=== PATIENT | female | born 1990 | race Caucasian/White ===

== ENCOUNTER 2017-08-26 10:38 | Outpatient (CLI) | payer OTHER | END 2017-08-26 10:46 | disposition home or self-care (01) | LOC: RX STUDY 10:38 | DX: K27.9 Peptic ulcer, site unspecified, unspecified as acute or chronic, without hemorrhage or perforation (principal); K20.9 Esophagitis, unspecified ==

== ENCOUNTER 2017-10-05 10:20 | Outpatient (CLI) | payer OTHER | END 2017-10-05 10:30 | disposition home or self-care (01) | LOC: SONOGRAMA 10:20 | DX: R10.13 Epigastric pain (principal) ==

== ENCOUNTER 2017-11-07 05:12 | Day surgery (SDC) | payer OTHER ==
[~2017-11-07 05:12] MED LIST: SYNTH PO; ZOLOFT50 MG PO
== END 2017-11-07 14:55 | disposition home or self-care (01) ==
LOC: CIR.AMB 05:12
DX: K80.10 Calculus of gallbladder with chronic cholecystitis without obstruction (principal)

== ENCOUNTER 2018-04-28 15:05 | Outpatient (CLI) | payer OTHER | END 2018-04-28 15:17 | disposition home or self-care (01) | LOC: RAD 501 15:05 | DX: M54.5 Low back pain (principal); M54.2 Cervicalgia; M54.89 Other dorsalgia ==